=== PATIENT | male | born 1980 | race Hispanic/Latino ===

== ENCOUNTER 2020-08-12 17:50 | Emergency (ER) | payer SELFPAY ==
--- NOTE | 2020-08-12 19:51 | Emergency Department Report ---
ED General Adult HPI - General Chief complaint: Dental/Oral Stated complaint: LEFT SIDE TOOTHACHE X 3 DAYS Source: patient Mode of arrival: Ambulatory Limitations: No Limitations - History of Present Illness Initial comments: Patient is a 39-year-old -[place] male with a history of seizures who presents to the ED with complaint of acute onset persistent painful swollen left maxillary gingiva and premolar molar toothache for the last 3 days. Patient states that the symptoms got worse in the last 24 hours such that he has not been able to sleep or eat anything because of worsening pain. Patient states that he has been taking [id number] pain medications with no relief. Patient denies dizziness, syncope, fever, chills, cough, sore throat, nausea and vomiting, dysphagia, dysphonia, traumatic injury, headache, change in vision, neck pain, chest pain or shortness of breath. MD Complaint: left mandibular premolar and molar toothache, swollen gums -: Sudden, days(s) (3) Location: mouth Radiation: non-radiation Severity scale (0 -10): 8 Quality: aching, sharp Consistency: constant Improves with: none Worsens with: none Associated Symptoms: denies other symptoms. denies: confusion, chest pain, cough, diaphoresis, fever/chills, headaches, loss of appetite, malaise, nausea/vomiting, rash, seizure, shortness of breath, syncope, weakness Treatments Prior to Arrival: none - Related Data Previous Rx's Medication Instructions Recorded Last Taken Type Amoxicillin/K Clav Tab [Augmentin 1 tab PO BID #20 tablet 12/08/12 Unknown Rx 875MG] Hydrocodone Bit/Acetaminophen 1 each PO Q6H PRN #12 tablet 12/08/12 Unknown Rx [Lortab 5-500 Tablet] Phenytoin [Dilantin] 100 mg PO Q8HR #90 capsule 12/08/12 Unknown Rx Clindamycin [Clindamycin CAP] 300 mg PO Q8HR #60 capsule 08/12/20 Unknown Rx Ketorolac [Toradol] 10 mg PO Q8H PRN #20 tablet 08/12/20 Unknown Rx Allergies Allergy/AdvReac Type Severity Reaction Status Date / Time No Known Allergies Allergy Verified 12/08/12 01:53 ED Review of Systems ROS: Stated complaint: LEFT SIDE TOOTHACHE X 3 DAYS Other details as noted in HPI Constitutional: denies: chills, fever Eyes: denies: eye pain, eye discharge, vision change ENT: dental pain (Left maxillary premolar and molar toothache), other (Left maxillary gingiva swelling and pain). denies: ear pain, throat pain Respiratory: denies: cough, shortness of breath, wheezing Cardiovascular: denies: chest pain, palpitations Endocrine: no symptoms reported Gastrointestinal: denies: abdominal pain, nausea, diarrhea Genitourinary: denies: urgency, dysuria Musculoskeletal: denies: back pain, joint swelling, arthralgia Skin: denies: rash, lesions Neurological: denies: headache, weakness, paresthesias Psychiatric: denies: anxiety, depression Hematological/Lymphatic: denies: easy bleeding, easy bruising ED Past Medical Hx - Past Medical History Previous Medical History?: Yes Hx Seizures: Yes - Surgical History Past Surgical History?: No - Social History Smoking Status: Current Every Day Smoker Substance Use Type: None - Medications Home Medications: Home Medications Medication Instructions Recorded Confirmed Last Taken Type Amoxicillin/K Clav Tab [Augmentin 1 tab PO BID #20 tablet 12/08/12 Unknown Rx 875MG] Hydrocodone Bit/Acetaminophen 1 each PO Q6H PRN #12 tablet 12/08/12 Unknown Rx [Lortab 5-500 Tablet] Phenytoin [Dilantin] 100 mg PO Q8HR #90 capsule 12/08/12 Unknown Rx Clindamycin [Clindamycin CAP] 300 mg PO Q8HR #60 capsule 08/12/20 Unknown Rx Ketorolac [Toradol] 10 mg PO Q8H PRN #20 tablet 08/12/20 Unknown Rx ED Physical Exam - General Limitations: No Limitations General appearance: alert, in no apparent distress - Head Head exam: Present: atraumatic, normocephalic, normal inspection - Eye Eye exam: Present: normal appearance, PERRL, EOMI Pupils: Present: normal accommodation - ENT ENT exam: Present: mucous membranes moist, TM's normal bilaterally, normal external ear exam, other (Swollen, severely tender left maxillary gingiva; severely tender left maxillary premolar and molar teeth) - Neck Neck exam: Present: normal inspection, full ROM, lymphadenopathy (Left anterior cervical lymphadenopathy). Absent: tenderness - Respiratory Respiratory exam: Present: normal lung sounds bilaterally. Absent: respiratory distress, wheezes, rales, chest wall tenderness, accessory muscle use, decreased breath sounds, prolonged expiratory - Cardiovascular Cardiovascular Exam: Present: regular rate, normal rhythm, normal heart sounds. Absent: systolic murmur, diastolic murmur, rubs, gallop - GI/Abdominal GI/Abdominal exam: Present: soft, normal bowel sounds. Absent: tenderness, guarding, rebound, hyperactive bowel sounds, hypoactive bowel sounds, organomegaly - Extremities Exam Extremities exam: Present: normal inspection, full ROM, normal capillary refill - Back Exam Back exam: Present: normal inspection, full ROM. Absent: tenderness, CVA tend erness (R), CVA tenderness (L), muscle spasm, paraspinal tenderness, vertebral tenderness - Neurological Exam Neurological exam: Present: alert, oriented X3, CN II-XII intact, normal gait, reflexes normal - Psychiatric Psychiatric exam: Present: normal affect, normal mood - Skin Skin exam: Present: warm, dry, intact, normal color. Absent: rash ED Course Vital Signs 08/12/20 18:08 Temperature 98.5 F Pulse Rate 86 Respiratory 13 Rate Blood Pressure 130/87 O2 Sat by Pulse 97 Oximetry ED Medical Decision Making - Medical Decision Making This is a 39-year-old -[place] male with a history of seizures who presents to the ED with complaint of acute onset persistent painful swollen left maxillary gingiva and premolar molar toothache for the last 3 days. Patient states that the symptoms got worse in the last 24 hours such that he has not been able to sleep or eat anything because of worsening pain. Patient states that he has been taking [id number] pain medications with no relief. In the ED, patient is alert and oriented x3 and is not in any distress. Patient is hemodynamically stable. Patient worse discharged home on pain medications and antibiotics and advised to follow-up with his primary care physician or dentist in 7 to 10 days for reevaluation or return to the ED immediately if symptoms get worse. - Differential Diagnosis Dental abscess; dental caries; gingivitis Critical care attestation.: If time is entered above; I have spent that time in minutes in the direct care of this critically ill patient, excluding procedure time. ED Disposition Clinical Impression: Dental abscess, Acute gingivitis, Dental caries Disposition: TO HOME OR SELFCARE Is pt being admited?: No Does the pt Need Aspirin: No Condition: Stable Instructions: Dental Abscess, [id number], Trench Mouth Additional Instructions: Take medication with food, drink plenty of fluids and follow-up with your primary care physician or dentist in 7 to 10 days for reevaluation. Return to the ED immediately if symptoms get worse. Prescriptions: Clindamycin [Clindamycin CAP] 300 mg PO Q8HR #60 capsule Ketorolac [Toradol] 10 mg PO Q8H PRN #20 tablet PRN Reason: Pain Referrals: [facility] [Outside] - 3-5 Days Forms: Work/School Release Form(ED) Time of Disposition: 19:49 Print Language: [place]
== END 2020-08-12 20:00 | disposition home or self-care (01) ==
LOC: ED 17:50
CPT/HCPCS: 99282

== ENCOUNTER 2020-09-09 10:33 | Emergency (ER) | payer SELFPAY ==
--- NOTE | 2020-09-09 12:55 | Emergency Department Report ---
ED General Adult HPI - General Chief complaint: Upper Respiratory Infection Stated complaint: SINUS INFECTION Time Seen by Provider: 09/09/20 11:27 Source: patient Mode of arrival: Ambulatory Limitations: No Limitations - History of Present Illness Initial comments: 39-year-old male patient presents with complaints of nasal congestion and sinus pain and pressure x2 days. He denies any cough, fever/chills/sweats, loss of taste/smell, headache, or recent known sick contacts. No past medical history per patient. He also complains of right-sided neck pain upon waking this morning that occurs only when he moves his head to the right. He denies any injury to the neck, but admits to repetitive motions with his right shoulder and heavy lifting at work. Patient states ibuprofen helps with the pain. Pain is nonradiating. He denies any numbness/tingling/weakness in his limbs - Related Data Previous Rx's Medication Instructions Recorded Last Taken Type Amoxicillin/K Clav Tab [Augmentin 1 tab PO BID #20 tablet 12/08/12 Unknown Rx 875MG] Hydrocodone Bit/Acetaminophen 1 each PO Q6H PRN #12 tablet 12/08/12 Unknown Rx [Lortab 5-500 Tablet] Phenytoin [Dilantin] 100 mg PO Q8HR #90 capsule 12/08/12 Unknown Rx Clindamycin [Clindamycin CAP] 300 mg PO Q8HR #60 capsule 08/12/20 Unknown Rx Ketorolac [Toradol] 10 mg PO Q8H PRN #20 tablet 08/12/20 Unknown Rx Naproxen 500 mg PO BID PRN #14 tablet 09/09/20 Unknown Rx methocarbamoL [Methocarbamol] 750 mg PO TID PRN #15 tablet 09/09/20 Unknown Rx predniSONE [Deltasone] 20 mg PO TID 3 Days #9 tab 09/09/20 Unknown Rx Allergies Allergy/AdvReac Type Severity Reaction Status Date / Time No Known Allergies Allergy Verified 12/08/12 01:53 ED Review of Systems ROS: Stated complaint: SINUS INFECTION Other details as noted in HPI Constitutional: denies: chills, fever, malaise ENT: congestion. denies: throat pain Respiratory: denies: cough Gastrointestinal: denies: nausea, vomiting Skin: denies: change in color Neurological: denies: headache, weakness, numbness, paresthesias, abnormal gait Hematological/Lymphatic: denies: swollen glands ED Past Medical Hx - Past Medical History Hx Seizures: Yes - Surgical History Additional Surgical History: HAND - Social History Smoking Status: Current Every Day Smoker Substance Use Type: None - Medications Home Medications: Home Medications Medication Instructions Recorded Confirmed Last Taken Type Amoxicillin/K Clav Tab [Augmentin 1 tab PO BID #20 tablet 12/08/12 Unknown Rx 875MG] Hydrocodone Bit/Acetaminophen 1 each PO Q6H PRN #12 tablet 12/08/12 Unknown Rx [Lortab 5-500 Tablet] Phenytoin [Dilantin] 100 mg PO Q8HR #90 capsule 12/08/12 Unknown Rx Clindamycin [Clindamycin CAP] 300 mg PO Q8HR #60 capsule 08/12/20 Unknown Rx Ketorolac [Toradol] 10 mg PO Q8H PRN #20 tablet 08/12/20 Unknown Rx Naproxen 500 mg PO BID PRN #14 tablet 09/09/20 Unknown Rx methocarbamoL [Methocarbamol] 750 mg PO TID PRN #15 tablet 09/09/20 Unknown Rx predniSONE [Deltasone] 20 mg PO TID 3 Days #9 tab 09/09/20 Unknown Rx ED Physical Exam - General Limitations: No Limitations General appearance: alert, in no apparent distress - Head Head exam: Present: atraumatic, normocephalic - Eye Eye exam: Present: normal appearance. Absent: scleral icterus - ENT ENT exam: Present: normal exam, other (Mild tenderness to palpation of the maxillary sinuses bilaterally) - Neck Neck exam: Present: tenderness (Mild tenderness palpation noted to right trapezius muscle without vertebral tenderness or obvious deformity noted), full ROM. Absent: meningismus - Respiratory Respiratory exam: Present: normal lung sounds bilaterally. Absent: respiratory distress - Cardiovascular Cardiovascular Exam: Present: regular rate, normal rhythm - Neurological Exam Neurological exam: Present: alert, oriented X3 - Psychiatric Psychiatric exam: Present: normal affect, normal mood - Skin Skin exam: Present: warm, dry, intact, normal color. Absent: rash, cyanosis, diaphoretic, erythema ED Course Vital Signs 09/09/20 10:58 Pulse Rate 86 Respiratory 16 Rate Blood Pressure 146/90 O2 Sat by Pulse 95 Oximetry ED Medical Decision Making - Medical Decision Making 39-year-old male patient presents with complaints of nasal congestion and sinus pain and pressure x2 days. He denies any cough, fever/chills/sweats, loss of taste/smell, headache, or recent known sick contacts. No past medical history per patient. He also complains of right-sided neck pain upon waking this morning that occurs only when he moves his head to the right. He denies any injury to the neck, but admits to repetitive motions with his right shoulder and heavy lifting at work. Patient states ibuprofen helps with the pain. Pain is nonradiating. He denies any numbness/tingling/weakness in his limbs Vitals are normal. Will treat for viral sinusitis and right neck strain. Recommend follow-up with PCP in 3 to 5 days. Patient is well-appearing and stable for discharge home. Strict return precautions were discussed in detail with patient who verbalized understanding. Critical care attestation.: If time is entered above; I have spent that time in minutes in the direct care of this critically ill patient, excluding procedure time. ED Disposition Clinical Impression: Acute viral sinusitis Disposition: DC-01 TO HOME OR SELFCARE Is pt being admited?: No Condition: Stable Instructions: Sinusitis, Adult Additional Instructions: Please purchase [id number] loratadine (Claritin) and use daily Prescriptions: predniSONE [Deltasone] 20 mg PO TID 3 Days #9 tab methocarbamoL [Methocarbamol] 750 mg PO TID PRN #15 tablet PRN Reason: muscle tightness Naproxen 500 mg PO BID PRN #14 tablet PRN Reason: pain Forms: Work/School Release Form(ED)
== END 2020-09-09 12:51 | disposition home or self-care (01) ==
LOC: ED 10:33
CPT/HCPCS: 99281